=== PATIENT | female | born 1980 | race Caucasian/White ===

== ENCOUNTER 2017-09-13 09:32 | Emergency (ER) | payer MEDICAID ==
--- NOTE | 2017-09-13 12:03 | ED Physician Documentation ---
PD HPI UPPER EXT INJURY - Stated complaint Stated Complaint: HAND PAIN - Chief complaint Chief Complaint: Ext Problem - History obtained from History obtained from: Patient - History of Present Illness Location: Right, Wrist Type of injury: Other (does use hands regularly at work.). No: Fall, Twist Where injury occurred: Work Timing - onset: How many weeks ago (has had some pain in wrists for few weeks. Much worse the past few days. Unable to sleep due to the pain. 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 ), Waxing and waning Improved by: No: Rest Worsened by: Moving, Palpating, Other (gripping) Associated symptoms: Weakness, Numbness, Tingling. No: Swelling, Discolored Contributing factors: No: Prior ortho surgery Similar symptoms before: No diagnosis (had similar a few years ago and improved without interval symptoms after few weeks with brace and meds.) Recently seen: Not recently seen Review of Systems Constitutional: denies: Fever, Chills Skin: denies: Rash, Lesions Musculoskeletal: denies: Neck pain, Back pain Neurologic: reports: Focal weakness, Numbness (middle fingers at times). denies : Generalized weakness PD PAST MEDICAL HISTORY - Past Medical History Past Medical History: Yes Neuro: Other Other Past Medical History: Psuedotumor Cerebra - Past Surgical History Past Surgical History: Yes - Present Medications Home Medications: Ambulatory Orders Medication Instructions Recorded Confirmed Dexamethasone [Decadron] 4 mg PO DAILY #5 tablet 09/13/17 Naproxen 375 mg PO BID #20 tablet 09/13/17 Oxycodone HCl/Acetaminophen 1 each PO Q6H PRN #20 tablet 09/13/17 [Percocet 5-325 mg Tablet] - Allergies Allergies/Adverse Reactions: Allergies Allergy/AdvReac Type Severity Reaction Status Date / Time hydrocodone Allergy Itching Verified 09/13/17 09:43 acetaminophen AdvReac Emesis Verified 09/13/17 09:43 - Social History Does the pt smoke?: Yes Smoking Status: Current every day smoker Does the pt drink ETOH?: No Does the pt have substance abuse?: Yes Substance Use and Type: Marijuana - Immunizations Immunizations are current?: Yes PD ED PE NORMAL - Vitals Vital signs reviewed: Yes - General General: Alert and oriented X 3, Well developed/nourished, Other (appears in pain with any wrist movement. ) - Neck Neck: Supple, no meningeal sign, No adenopathy - Cardiac Cardiac: RRR, No murmur - Respiratory Respiratory: Clear bilaterally - Derm Derm: Normal color, Warm and dry, No rash - Extremities Extremities: Other (volar wrist tenderr to palpation and tapping at wrist causes tingling and electric pain into middle fingers. Normal color and cap refill of the fingers. Dorsally not tender. ) - Neuro Neuro: Alert and oriented X 3, Other (less sensation to touch in middle fingers but still feels sharp/dull distinction. 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 ) Results - Vitals Vitals: Oxygen O2 Source Room air PD MEDICAL DECISION MAKING - ED course Complexity details: considered differential (seems very consistent with carpal tunnel. ), d/w patient Departure - Departure Disposition: 01 Home, Self Care Clinical Impression: Carpal tunnel syndrome of right wrist Condition: Stable Record reviewed to determine appropriate education?: Yes Instructions: ED Carpal Tunnel Follow-Up: Carolee Hernandez MD [Provider Admit Priv/Credential] - Prescriptions: Dexamethasone [Decadron] 4 mg PO DAILY #5 tablet Naproxen 375 mg PO BID #20 tablet Oxycodone HCl/Acetaminophen [Percocet 5-325 mg Tablet] 1 each PO Q6H PRN #20 tablet PRN Reason: Pain Comments: Use a wrist splint during activity and also wear it for sleep at night. He can have it off part of the day and have gentle range of motion of the wrist. This sounds like a carpal tunnel inflammation. Use naproxen twice daily for 7-10 days. Also Decadron steroid anti-inflammatory daily for 5 more days. Add Tylenol or Percocet if needed for pain particularly at night. Follow-up with orthopedics in about a week, call today for an appointment. Forms: Activity restrictions Discharge Date/Time: 09/13/17 12:51
[2017-09-13] MEDS ORDERED: DEXAMETHASONE 10 MG/ML VIAL PO STA (12:18)
[2017-09-13] MEDS ORDERED: oxyCOD/ACETAMIN 5 MG/325 MG TABLET PO STA (12:18)
[2017-09-13 12:50] VITALS: BP 143/78
== END 2017-09-13 12:51 | disposition home or self-care (01) ==
LOC: ED 09:32
DX: G56.01 Carpal tunnel syndrome, right upper limb (principal); F17.200 Nicotine dependence, unspecified, uncomplicated
CPT/HCPCS: 99283; A9270